=== PATIENT | female | born 1985 | race Caucasian/White ===

== ENCOUNTER 2017-07-03 18:52 | Emergency (ER) | payer OTHER ==
[~2017-07-03] VITALS: Ht 175.3 cm; Wt 94.8 kg
[2017-07-03 18:52] VITALS: BP 148/94
[2017-07-03] MEDS ORDERED: NEOMYCIN/POLYMYXIN/HC OTIC SUSPENSION 10ML BOTTLE. AU ONE (19:15)
[2017-07-03] MEDS ORDERED: predniSONE 20 MG TABLET PO ONE (19:15)
[2017-07-03 19:49] LABS: INFLUENZA A PATIENT NEGATIVE (NEGATIVE); INFLUENZA B PATIENT NEGATIVE (NEGATIVE)
[2017-07-03] MEDS ORDERED: HYDR-79 PO (19:57)
[2017-07-03] MEDS ORDERED: CEPH-264 PO (19:57)
[2017-07-03] MEDS ORDERED: CEPHALEXIN 250 MG CAPSULE PO ONE (20:00)
== END 2017-07-03 20:18 | disposition home or self-care (01) ==
LOC: ER 18:52
DX: H66.91 Otitis media, unspecified, right ear (principal); J06.9 Acute upper respiratory infection, unspecified
CPT/HCPCS: 87070; 87804; 87880; 99284; J7512